=== PATIENT | male | born 1985 | race Two or more races ===

== ENCOUNTER 2024-06-16 11:12 | Emergency (ER) | payer MEDICAID, SELFPAY ==
[2024-06-16 11:45] VITALS: BP 142/98; PULSE 77; RESP 18; TEMP 36.9; O2SAT 99; BMI 32.2
--- NOTE | 2024-06-16 11:57 | EDNOTE_ITS ---
ED Animal Bite RME/HPI General Chief Complaint: Animal Bite Stated Complaint: DOG BITE TO RIGHT FOOT TODAY Time Seen by Provider: 06/16/24 11:16 Source: patient, RN notes reviewed and old records reviewed Arrival date/time: 06/16/24 11:12 Mode of arrival: ambulatory Limitations: no limitations RME / HPI RME / HPI narrative: 38yom presents to ED for dog bite that occurred today. Patient was playing with friend's dog when it accidentally bit his right ankle. Dog immunizations utd. Patient requests tdap booster. Patient cleaned wound with soap and water immediately after injury. No other symptoms reported. Related Data Previous Rx's ?Medication ?Instructions ?Recorded amoxicillin 875 mg-potassium 1 tab PO BID 7 days #14 tabs 06/16/24 clavulanate 125 mg tablet Allergies Allergy/AdvReac Type Severity Reaction Status Date / Time No Known Allergies Allergy Verified 06/16/24 11:17 Review of Systems Review of Systems Systems Reviewed: All systems reviewed, normal except as documented Integumentary/Breasts Comments: Reports abrasion Past Medical History Surgical History OTHER SURGICAL HX: Denies past surgical history Social History SMOKING STATUS: Current every day smoker SUBSTANCE USE: does not use ALCOHOL: Never Past Medical History Comments PMH COMMENT: Denies past medical history ED Exam General Limitations: Present no limitations General appearance: Present alert and in no apparent distress Head Head exam: Present atraumatic and normocephalic Eye Eye exam: Present normal appearance, PERRL and EOMI ENT ENT exam: Present normal exam and mucous membranes moist Neck Neck exam: Present normal inspection and full ROM Chest Chest inspection: Present normal inspection and symmetric chest wall rise Respiratory Respiratory exam: Present normal lung sounds bilaterally; Absent respiratory distress Cardiovascular Cardiovascular exam: Present regular rate and normal rhythm Extremities Exam Extremities exam: Present normal inspection and full ROM Neurological Exam Neurological exam: Present alert and oriented X3 Psychiatric Psychiatric exam: Present normal affect and normal mood Skin Skin exam: Present warm, dry and other (Small abrasion right lateral ankle) Course Quality Measures none Orders Category Date Time Status Tet,Diphth,Pertuss(Acell)-Tdap [Boostrix Vacc] Med 06/16/24 11:57 Discontinued 0.5 ml IMI .ONCE ONE Vital Signs Vital signs: Vital Signs Temperature 98.4 F 06/16/24 11:45 Pulse Rate 77 06/16/24 11:45 Respiratory Rate 18 06/16/24 11:45 Blood Pressure 142/98 H 06/16/24 11:45 Pulse Oximetry (%) 99 06/16/24 11:45 Oxygen Delivery Method Room Air 06/16/24 11:45 Animal Bite MDM Narrative MDM Narrative:: 38yom presents to ED for dog bite that occurred today. Patient was playing with friend's dog when it accidentally bit his right ankle. Dog immunizations utd. Patient requests tdap booster. Patient cleaned wound with soap and water immediately after injury. No other symptoms reported. Small abrasion to right ankle. Home wound care discussed, tetanus updated. Will rx augmentin for prophylaxis. Stable for dc, RTED precautions given. Patient data External records reviewed:: None (no prior visits) Clinical information provided by:: patient Social determinants that could affect healthcare access:: other (specify) (poor access to healthcare) Patient has the following chronic illnesses:: none How is presenting disease/condition affected by chronic disease/condition?: no chronic disease Evaluation data The following diagnostics were reviewed and interpreted by me:: other (specify) (none) Lab and/or radiology exams considered but not ordered:: ankle xrays: do not suspect fx or fb Interpretation Summary: na Medications / Prescriptions Medications or Prescriptions considered but not ordered:: none Medication administrations:: Medication Administration History Discontinued Medications Diphtheria/Tetanus/Acell Pertussis (Diphth,Pertuss(Acell),Tet Vac 0.5 Ml Vial) 0.5 ml IMi .ONCE ONE Stop: 06/16/24 11:58 Last Admin: 06/16/24 12:18 Dose: 0.5 ml Documented By: KF above medication administered in ED Consultations Consultation(s) initiated? (list below): No Diagnosis Differential diagnosis animal bite: bite by animal, dog bite and other (abrasion, laceration, avulsion) Most likely diagnosis given after review of the tests above:: dog bite, abrasion Admission Indicated Admission indicated?: not indicated Admission Request Was there a request for admission?: No Disposition Plan Disposition Plan: Discharge Discharge Attestation Discharge Attestation: The patient and all family members were given an opportunity to ask questions and understood the discharge instructions. Discharge instructions specifically effects, indications for sooner follow up or return to the emergency department, and the expected course of current diagnosis. Patient condition: Stable Discharge Plan Plan Patient Disposition: HOME (Self Care) Patient condition on transfer: Stable Prescriptions/Referrals Prescriptions/Med Rec: New amoxicillin-pot clavulanate 875-125 mg tablet 1 tab PO BID 7 Days Qty: 14 0RF Problem List Clinical Impression: Dog bite, Abrasion of leg, right Patient/Caregiver Discharge Instructions Education Materials: ED Dog Bite Print Language: Kosovan Stand Alone Forms: Dotty Award Info., Patient Portal Info Letter PA/NET ARCHITECT Supervising Physician PA/NET ARCHITECT Supervising Physician: Muriel
[2024-06-16] MEDS: DIPHTH,PERTUSS(ACELL),TET VAC 0.5 ML VIAL IMi (12:18)
== END 2024-06-16 12:21 | disposition home or self-care (01) ==
PROVIDERS: Emergency Provider Emergency Medicine; Referring Provider Emergency Medicine
DX: S80.811A Abrasion, right lower leg, initial encounter (principal); W54.0XXA Bitten by dog, initial encounter; Z23 Encounter for immunization
CPT/HCPCS: 90471; 90715; 99282